=== PATIENT | male | born 1995 | race Caucasian/White ===

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

== ENCOUNTER 2017-03-24 17:40 | Emergency (ER) | payer OTHER ==
[2017-03-24 17:44] VITALS: RESP 18
--- NOTE | 2017-03-24 18:21 | ED ---
Wound/Laceration HPI - General Chief Complaint: Wound/Laceration Stated Complaint: Leg Injury Time Seen by Provider: 03/24/17 18:14 Source: patient, RN notes reviewed Mode of arrival: ambulatory Limitations: no limitations - History of Present Illness Initial Comments: 21-year-old male presents emergency Department chief complaint of right kelley laceration. Patient states that he was ready by if he fell onto his right kelley. Patient states he has pain to the anterior kelley he noticed a laceration. Patient states have not o'clock this morning. Patient states he is up-to- date on his tetanus. Patient states that he was concerned due to help and was soon afterward he decided to be seen. Patient denies any other symptoms with this. Patient states he did not hit his head which other injury from the incident.Patient denies any recent fever, chills, shortness of breath, chest pain, back pain, abdominal pain, nausea vomiting, numbness or tingling, dysuria or hematuria, constipation or diarrhea, headaches or visual changes, or any other current symptoms. - Related Data Home Medications Medication Instructions Recorded Confirmed No Known Home Medications [No 06/11/16 11/27/16 Known Home Medications] Allergies Allergy/AdvReac Type Severity Reaction Status Date / Time No Known Allergies Allergy Verified 03/24/17 17:44 Review of Systems ROS Statement: Those systems with pertinent positive or pertinent negative responses have been documented in the HPI. ROS Other: All systems not noted in ROS Statement are negative. Past Medical History Past Medical History: No Reported History History of Any Multi-Drug Resistant Organisms: None Reported Past Surgical History: No Surgical Hx Reported Past Psychological History: No Psychological Hx Reported Smoking Status: Current every day smoker Past Alcohol Use History: Occasional Past Drug Use History: None Reported General Exam - General Exam Comments Initial Comments: General: The patient is awake and alert, in no distress, and does not appear acutely ill. Neck: The neck is supple, there is no tenderness. Cardiovascular: There is a regular rate and rhythm. No murmur, rub or gallop is appreciated. Respiratory: Lungs are clear to auscultation, respirations are non-labored, breath sounds are equal. No wheezes, stridor, rales, or rhonchi. Musculoskeletal: Sensation intact with 2+ pulses throughout the right lower extremity. Full Range of motion of right knee and right ankle. Patient does have some tenderness to the anterior kelley. This appeared to be an 2 half centimeter frontal kelley laceration. Neurological: CN II-XII intact, There are no obvious motor or sensory deficits. Coordination appears grossly intact. Speech is normal. Skin: Skin is warm and dry and no rashes or lesions are noted. Psychiatric: Normal mood and affect. Limitations: no limitations Course Vital Signs 03/24/17 17:42 Temperature 98.0 F Pulse Rate 96 Respiratory 18 Rate Blood Pressure 141/78 O2 Sat by Pulse 98 Oximetry Procedures - Procedures Initial comment: The skin was anesthetized with 1% lidocaine. The laceration was then cleansed with Betadine and irrigated with normal saline. The wound was inspected, and there was no evidence of injury to deep structures. No foreign body was noted in the wound. A total of 4 skin sutures were placed utilizing 5-0 nylon to a right kelley laceration that is 2.5 cm curved Medical Decision Making - Medical Decision Making 21-year-old male presents emergency room chief complaint of right kelley laceration. This time x-rays reviewed and negative. This time patient went suture care. We discussed care follow-up return parameters. We discussed all patient's family's questions. He stated he understood and management. The plan. They will be discharged home. - Radiology Data Radiology results: image reviewed Interpreted by me: Interpreted by me: Right tib-fib xray: 2 view, no fracture, no dislocation, no bony lesions, no foreign bodies, no soft tissue damage. Waiting official radiology read. Disposition Clinical Impression: Laceration of right lower leg Disposition: HOME SELF-CARE Condition: Stable Instructions: Laceration (ED) Additional Instructions: Please use medication as discussed. Please follow up with family doctor if symptoms have not improved over the next two days. Please return to the emergency room if your symptoms increase or worsen or for any other concerns. Please return to the emergency room in 8-10 days to have sutures removed. Please leave wound covered for the first 24-48 hours and then leave open to air after that time. Please use clean soap and water to clean the suture area to prevent scabbing over the top of your sutures. Please watch for any signs of infection which may include but not limited to increased pain, swelling, redness , fever or chills. Please return to the emergency room if any signs of infection do occur. Please return to the emergency room for any other concerns or complications. Referrals: Matt,, MD [STAFF PHYSICIAN] - 1-2 days Time of Disposition: 18:38
[2017-03-24 18:49] VITALS: BP 126/59; PULSE 69; TEMP 98.2
--- NOTE | 2017-03-24 19:04 | XR ---
EXAMINATION TYPE: XR tibia fibula RT DATE OF EXAM: 03/24/2017 6:28 PM COMPARISON: NONE HISTORY: Laceration. Pain TECHNIQUE: 2 views FINDINGS: I see no fracture nor dislocation. Soft tissues appear normal. There is no sign of a foreig n body. IMPRESSION: Negative right lower leg tibia and fibula exam.
== END 2017-03-24 18:49 | disposition home or self-care (01) ==
LOC: EC 17:40
DX: S81.811A Laceration without foreign body, right lower leg, initial encounter (principal); F17.200 Nicotine dependence, unspecified, uncomplicated; V28.9XXA Unspecified motorcycle rider injured in noncollision transport accident in traffic accident, initial encounter; Y92.410 Unspecified street and highway as the place of occurrence of the external cause
CPT/HCPCS: 12001; 99283

== ENCOUNTER 2017-10-22 19:51 | Emergency (ER) | payer OTHER ==
[2017-10-22] MEDS ORDERED: RX INFO: IV CONTRAST WAS GIVEN 1 EACH MISC MISCELLANE PRN (19:54)
[2017-10-22] MEDS ORDERED: MORPHINE SULFATE 5 MG/ML SYRINGE IVP STA (19:59)
[2017-10-22 20:01] VITALS: BP 137/76; PULSE 89; RESP 18; TEMP 97.7
[2017-10-22 20:20] LABS: Basophils # (A) 0.1 k/uL (0-0.2); Basophils % (A) 0 %; CH 31.7; CHCM 33.7; Eosinophils # (A) 0.1 k/uL (0-0.7); Eosinophils % (A) 1 %; HCT 46.5 % (39.0-53.0); HDW 2.37; HGB 15.6 gm/dL (13.0-17.5); Luc # (Auto) 0.11; Luc % (Auto) 1; Lymphocytes # (A) 1.2 k/uL (1.0-4.8); Lymphocytes % (A) 8 %; MCH 31.6 pg (25.0-35.0); MCHC 33.5 g/dL (31.0-37.0); MCV 94.6 fL (80.0-100.0); Monocytes # (A) 0.7 k/uL (0-1.0); Monocytes % (A) 4 %; Neutrophils # (A) 13.6 k/uL (1.3-7.7); Neutrophils % (A) 87 %; RBC 4.92 m/uL (4.30-5.90); RDW 13.2 % (11.5-15.5); WBC 15.7 k/uL (4.0-11.0); WBC (Perox) 15.82
[2017-10-22 20:28] LABS: INR 1.1 (<1.2); Partial Thromboplastin Time 25.4 sec (22.0-30.0); Prothrombin Time 10.9 sec (9.0-12.0)
[2017-10-22 20:31] LABS: ALT 55 U/L (21-72); AST 59 U/L (17-59); Alkaline Phosphatase 64 U/L (38-126); Anion Gap 11 mmol/L; Blood Urea Nitrogen 12 mg/dL (9-20); Carbon Dioxide 25 mmol/L (22-30); Chloride 106 mmol/L (98-107); Glucose 81 mg/dL (74-99); Non-African American GFR(MDRD) >60 (>60 ml/min/1.73 sqM); Potassium 3.5 mmol/L (3.5-5.1); Sodium 142 mmol/L (137-145); Total Bilirubin 0.4 mg/dL (0.2-1.3); Total Protein 6.4 g/dL (6.3-8.2)
[2017-10-22 20:32] LABS: Alcohol 98 mg/dL
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
[2017-10-22 20:41] LABS: Creatine Kinase 486 U/L (55-170)
[2017-10-22 20:54] LABS: Troponin I <0.012 ng/mL (0.000-0.034)
[2017-10-22 21:01] LABS: Appearance,Urine Clear (Clear); Bacteria,Urine Rare /hpf; Bilirubin,Urine Negative (Negative); Glucose,Urine (UA) Negative (Negative); Ketones,Urine Negative (Negative); Leukocyte Esterase,Urine Negative (Negative); Nitrite,Urine Negative (Negative); Particle Count 587; Protein,Urine Negative (Negative); RBC,Urine <1 /hpf (0-5); Specific Gravity,Urine 1.005 (1.001-1.035); UA Billing (MACRO vs. MICRO) MICRO; Urobilinogen,Urine <2.0 mg/dL (<2.0); WBC,Urine <1 /hpf (0-5)
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
== END 2017-10-22 22:06 | disposition home or self-care (01) ==
LOC: EC 19:51
DX: S20.219A Contusion of unspecified front wall of thorax, initial encounter (principal); R40.2412 Glasgow coma scale score 13-15, at arrival to emergency department; F17.200 Nicotine dependence, unspecified, uncomplicated; V48.9XXA Unspecified car occupant injured in noncollision transport accident in traffic accident, initial encounter; Y92.410 Unspecified street and highway as the place of occurrence of the external cause
CPT/HCPCS: 99285; 96374; 36415; 93005; 86900; 86901; 80053; 82550; 82553; 83605; 84484; 85025; 85610; 85730; 86850; 81001; 80306; 80320; 71010; 72170; 72125; 70450; 71260; 74177; Q9967; J2274

== ENCOUNTER 2017-10-23 13:15 | Emergency (ER) | payer OTHER ==
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
[2017-10-24 16:43] LABS: Appearance,Urine Clear (Clear); Bilirubin,Urine Negative (Negative); Blood,Urine Negative (Negative); Color,Urine Yellow; Glucose,Urine (UA) Negative (Negative); Ketones,Urine 1+ (Negative); Leukocyte Esterase,Urine Negative (Negative); Mucus,Urine Rare /hpf; Nitrite,Urine Negative (Negative); Protein,Urine Negative (Negative); RBC,Urine 2 /hpf (0-5); Specific Gravity,Urine 1.018 (1.001-1.035); Squamous Epithelial Cell,Urine <1 /hpf (0-4); Urobilinogen,Urine <2.0 mg/dL (<2.0); WBC,Urine 1 /hpf (0-5)
== END 2017-10-23 17:29 | disposition left against medical advice (07) ==
LOC: EC 13:15
DX: S20.211A Contusion of right front wall of thorax, initial encounter (principal); V43.62XA Car passenger injured in collision with other type car in traffic accident, initial encounter; Y92.410 Unspecified street and highway as the place of occurrence of the external cause
CPT/HCPCS: 71020; 81003; 99284

== ENCOUNTER 2018-10-31 23:16 | Emergency (ER) | payer OTHER ==
[2018-10-31 23:38] VITALS: RESP 18
--- NOTE | 2018-11-01 00:42 | ED ---
Lower Extremity Injury HPI - General Source: patient, RN notes reviewed Mode of arrival: ambulatory Limitations: no limitations <Clemente Peoples - Last Filed: 11/01/18 00:39> <Ashwini Kaplan - Last Filed: 11/05/18 02:11> - General Chief Complaint: Extremity Injury, Lower Stated Complaint: Extremity numbness Time Seen by Provider: 11/01/18 00:08 - History of Present Illness Initial Comments: This a 23-year-old male presents emergency Department chief complaint left foot injury. Patient states he was seen at [facility] urgent care and [facility] today for a fracture of his left foot. He states that he fell off a roof approximately 25 feet. Patient states that he was told he had 7 different fractures of his foot. Patient will follow-up with Dr. nikolas haynes. Patient states she developed some numbness and tingling in his advised to come emergency department at that time. He states since taking the wrap off symptoms have resolved. He denies any discoloration. (Clemente Peoples) - Related Data Home Medications Medication Instructions Recorded Confirmed No Known Home Medications 06/11/16 10/24/17 Allergies Allergy/AdvReac Type Severity Reaction Status Date / Time No Known Allergies Allergy Verified 10/31/18 23:38 Review of Systems ROS Other: All systems not noted in ROS Statement are negative. <Clemente Peoples - Last Filed: 11/01/18 00:39> ROS Other: All systems not noted in ROS Statement are negative. <Ashwini Kaplan - Last Filed: 11/05/18 02:11> ROS Statement: Those systems with pertinent positive or pertinent negative responses have been documented in the HPI. Past Medical History Past Medical History: No Reported History History of Any Multi-Drug Resistant Organisms: None Reported Past Surgical History: No Surgical Hx Reported Past Psychological History: No Psychological Hx Reported Smoking Status: Current every day smoker Past Alcohol Use History: Daily Past Drug Use History: Marijuana <Clemente Peoples - Last Filed: 11/01/18 00:39> General Exam Limitations: no limitations General appearance: alert, in no apparent distress Head exam: Present: atraumatic, normocephalic, normal inspection Respiratory exam: Present: normal lung sounds bilaterally. Absent: respiratory distress, wheezes, rales, rhonchi, stridor Cardiovascular Exam: Present: regular rate, normal rhythm, normal heart sounds. Absent: systolic murmur, diastolic murmur, rubs, gallop, clicks Extremities exam: Present: other (Left foot there is moderate swelling noted, ecchymosis, pedal pulses are equal bilaterally posterior tibialis and dorsalis pedis. There is no pallor color Refill less than 2 seconds patient has full sensation with palpation) Skin exam: Present: warm, dry, intact, normal color. Absent: rash <Clemente Peoples - Last Filed: 11/01/18 00:39> Vital Signs 10/31/18 11/01/18 23:33 01:50 Temperature 98.5 F 98.4 F Pulse Rate 111 H 68 Respiratory 18 18 Rate Blood Pressure 140/78 142/70 O2 Sat by Pulse 97 98 Oximetry Medical Decision Making <Clemente Peoples - Last Filed: 11/01/18 00:39> <Ashwini Kaplan - Last Filed: 11/05/18 02:11> - Medical Decision Making 31-year-old male presented for left foot injury, reexamination of left foot. Patient is concerned about possible compartment syndrome. Patient has no evidence at this time. He has equal pulses, normal color normal warmth. Sensation. Patient's foot will be rewrapped and will follow-up with orthopedics. (Clemente Peoples) I personally saw and examined the patient. I reviewed and agree with the mid- level provider findings including all diagnostic interpretations and treatment plans as written unless otherwise stated. Patient with a significant injury to his foot which was identified at outside hospital earlier today. Patient was placed in a splint with Joe wrapping and reports that this evening his foot became cold and pain became worse he was concern for compartment syndrome as he had been warned about this so he came in for evaluation. When I evaluated the patient his foot had been unwrapped from a strapping for approximately an hour, he reports the pain has improved the color has improved. At this time I suspect that they swelling increased and Joe wrapping became very tight. I discussed appropriate strapping. Rest, ice and elevation. Patient is to follow-up with Dr. Padilla as planned. Return parameters were again discussed patient was discharged home in stable condition. (Ashwini Kaplan) Disposition Is patient prescribed a controlled substance at d/c from ED?: No Time of Disposition: 00:42 <Clemente Peoples - Last Filed: 11/01/18 00:39> <Ashwini Kaplan - Last Filed: 11/05/18 02:11> Clinical Impression: Foot fracture, left Disposition: HOME SELF-CARE Condition: Stable Instructions: Compartment Syndrome (DC) Additional Instructions: Please return to the Emergency Department if symptoms worsen or any other concerns. Referrals: None,Stated [Primary Care Provider] - 1-2 days Joshua Padilla MD [Medical Doctor] - 1-2 days
[2018-11-01 01:51] VITALS: BP 142/70; PULSE 68; TEMP 98.4
== END 2018-11-01 01:51 | disposition home or self-care (01) ==
LOC: EC 23:16
DX: S92.902A Unspecified fracture of left foot, initial encounter for closed fracture (principal); F17.200 Nicotine dependence, unspecified, uncomplicated; W13.2XXA Fall from, out of or through roof, initial encounter; Y92.69 Other specified industrial and construction area as the place of occurrence of the external cause; Y99.0 Civilian activity done for income or pay
CPT/HCPCS: 99283

== ENCOUNTER 2023-05-31 23:01 | Emergency (ER) | payer BC ==
--- NOTE | 2023-05-31 23:25 | ED ---
General Adult HPI - General Chief complaint: Shortness of Breath Stated complaint: Rapid Heart Rate Time Seen by Provider: 05/31/23 23:05 Source: patient, EMS Mode of arrival: EMS Limitations: no limitations - History of Present Illness Initial comments: Patient presents to the ED by ambulance for evaluation. Patient reports developing rapid heart palpitations and dyspnea about 1 hour prior to arrival. Patient appears to be intoxicated, but he denies medication abuse/overdose, illicit drug use or alcohol use today. Patient states that he last used cocaine last night. Patient denies having any chest pain or any pain at all. Patient denies trauma or injury, fever or chills, headache, focal numbness/weakness/neuro deficit, chest pain or pressure, cough or cold symptoms, dizziness, syncope, abdominal pain, nausea/vomiting/diarrhea, dysuria or urinary symptoms, decreased urine output, leg or calf swelling or pain, or any other symptoms or complaints. - Related Data Home Medications Medication Instructions Recorded Confirmed No Known Home Medications 06/11/16 10/24/17 Allergies Allergy/AdvReac Type Severity Reaction Status Date / Time No Known Allergies Allergy Verified 10/31/18 23:38 Review of Systems ROS Statement: Those systems with pertinent positive or pertinent negative responses have been documented in the HPI. ROS Other: All systems not noted in ROS Statement are negative. Past Medical History Past Medical History: No Reported History History of Any Multi-Drug Resistant Organisms: None Reported Past Surgical History: Orthopedic Surgery Past Psychological History: No Psychological Hx Reported Smoking Status: Current every day smoker Past Alcohol Use History: Occasional Past Drug Use History: Marijuana General Exam Limitations: no limitations General appearance: alert, appears intoxicated Head exam: Present: atraumatic, normocephalic Eye exam: Present: other (Dilated and reactive pupils bilaterally; bilateral conjunctival injection) ENT exam: Present: mucous membranes moist Neck exam: Present: other (Trachea is in midline). Absent: tenderness, meningismus Respiratory exam: Present: normal lung sounds bilaterally. Absent: respiratory distress, wheezes, rales, rhonchi, stridor, chest wall tenderness Cardiovascular Exam: Present: normal rhythm, tachycardia, normal heart sounds, other (Normal radial pulses bilaterally) GI/Abdominal exam: Present: soft. Absent: distended, tenderness, guarding Extremities exam: Present: other (Negative Homans sign bilaterally). Absent: tenderness, pedal edema, calf tenderness Neurological exam: Present: alert, oriented X3, CN II-XII intact. 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 Patient is easily arousable, but difficult to keep awake at this time. Plan will be to discharge patient home once he is more awake. Patient's fiance is at bedside with the patient. She is aware of the patient's test results, and she feels comfortable taking the patient home from the ED tonight. She was counseled about cocaine abuse, palpitations and dyspnea. She was clearly explained return and follow-up instructions. She was instructed to have the patient follow up closely with his primary care provider. EKG Findings - EKG Comments: EKG Findings:: ED physician interpretation (interpreted by me): Sinus tachycardia, ventricular rate of 112 bpm, no ectopy, normal MN and QRS intervals, normal QT interval, normal axis, no ST or T-wave abnormality Medical Decision Making - Medical Decision Making Was pt. sent in by a medical professional or institution (, PA, MICROSYSTEMS ENGINEER, urgent care, hospital, or long term...) When possible be specific @ -No Did you speak to anyone other than the patient for history (EMS, parent, family, police, friend...)? What history was obtained from this source @ -No Did you review nursing and triage notes (agree or disagree)? Why? @ -I reviewed and agree with nursing and triage notes Were old charts reviewed (outside hosp., previous admission, EMS record, old EKG, old radiological studies, urgent care reports/EKG's, long term records)? Report findings @ -No old charts were reviewed Differential Diagnosis (chest pain, altered mental status, abdominal pain women, abdominal pain men, vaginal bleeding, weakness, fever, dyspnea, syncope, headache, dizziness, GI bleed, back pain, seizure, CVA, palpatations, mental health, musculoskeletal)? @ -Differential Palpitations Ventricular arrhythmias, atrial arrhythmias, myocardial infarction, anemia, electrolyte imbalance, hypokalemia, pulmonary embolism, pulmonary disease, drugs, alcohol, anxiety, stress, dehydration, dyspnea, pneumothorax, asthma, COPD, CHF....This is not meant to be an all-inclusive list. EKG interpreted by me (3pts min.). @ -As above X-rays interpreted by me (1pt min.). @ -Chest x-ray was reviewed myself and shows no acute abnormality. I agree with the radiologist's interpretation as above. CT interpreted by me (1pt min.). @ -None done U/S interpreted by me (1pt. min.). @ -None done What testing was considered but not performed or refused? (CT, X-rays, U/S, labs)? Why? @ -None What meds were considered but not given or refused? Why? @ -None Did you discuss the management of the patient with other professionals (professionals i.e. , PA, MICROSYSTEMS ENGINEER, lab, RT, psych nurse, social problems specialist, odd job laborer, teacher, unemployment insurance hearing officer, housing case manager)? Give summary @ -No Was smoking cessation discussed for >3mins.? @ -No Was critical care preformed (if so, how long)? @ -No Were there social determinants of health that impacted care today? How? (Homelessness, low income, unemployed, alcoholism, drug addiction, transportation, low edu. Level, literacy, decrease access to med. care, alf, rehab)? @ -No Was there de-escalation of care discussed even if they declined (Discuss DNR or withdrawal of care, Hospice)? DNR status @ -No What co-morbidities impacted this encounter? (DM, HTN, Smoking, COPD, CAD, Cancer, CVA, ARF, Chemo, Hep., AIDS, mental health diagnosis, sleep apnea, morbid obesity)? @ -None Was patient admitted / discharged? Hospital course, mention meds given and route, prescriptions, significant lab abnormalities, going to OR and other pertinent info. @ -Patient presented to the ED with symptoms of tachycardia and dyspnea. Patient was noted to have dilated pupils, and I suspect some sort of sympathomimetic toxidrome. Patient admitted to using cocaine last night. Patient was treated with IV Ativan in the ED with resolution of his tachycardia and improvement in his blood pressure. Other than a mildly low potassium level, for which the patient was treated with oral potassium in the ED, the patient's labs are fairly unremarkable, including a negative d-dimer and normal troponin. Patient's chest x-ray is negative. Will discharge patient home with his fiance. Undiagnosed new problem with uncertain prognosis? @ -No Drug Therapy requiring intensive monitoring for toxicity (Heparin, Nitro, Insulin, Cardizem)? @ -No Were any procedures done? @ -No Diagnosis/symptom? @ -Palpitations Acute, or Chronic, or Acute on Chronic? @ -Acute Uncomplicated (without systemic symptoms) or Complicated (systemic symptoms)? @ -default Side effects of treatment? @ -No Exacerbation, Progression, or Severe Exacerbation? @ -No Poses a threat to life or bodily function? How? (Chest pain, [place], [place], pneumonia, PE, COPD, DKA, ARF, appy, cholecystitis, CVA, Diverticulitis, Homicidal, Suicidal, threat to staff... and all critical care pts) @ -No Diagnosis/symptom? @ -Dyspnea Acute, or Chronic, or Acute on Chronic? @ -Acute Uncomplicated (without systemic symptoms) or Complicated (systemic symptoms)? @ -default Side effects of treatment? @ -none Exacerbation, Progression, or Severe Exacerbation] @ -no Poses a threat to life or bodily function? @ -no Diagnosis/symptom? @ -Cocaine abuse Acute, or Chronic, or Acute on Chronic? @ -default Uncomplicated (without systemic symptoms) or Complicated (systemic symptoms)? @ -default Side effects of treatment? @ -none Exacerbation, Progression, or Severe Exacerbation] @ -no Poses a threat to life or bodily function? @ -no Diagnosis/symptom? @ -Mild hypokalemia Acute, or Chronic, or Acute on Chronic? @ -default Uncomplicated (without systemic symptoms) or Complicated (systemic symptoms)? @ -default Side effects of treatment? @ -none Exacerbation, Progression, or Severe Exacerbation] @ -no Poses a threat to life or bodily function? @ -no - Lab Data Result diagrams: 05/31/23 23:18 05/31/23 23:18 Lab Results 05/31/23 05/31/23 05/31/23 Range/Units 23:18 23:18 23:18 WBC 8.9 (3.8-10.6) k/uL RBC 4.46 (4.30-5.90) m/uL Hgb 14.4 (13.0-17.5) gm/dL Hct 41.8 (39.0-53.0) % MCV 93.9 (80.0-100.0) fL MCH 32.2 (25.0-35.0) pg MCHC 34.3 (31.0-37.0) g/dL RDW 12.7 (11.5-15.5) % Plt Count 163 (150-450) k/uL MPV 8.6 Neutrophils % 61 % Lymphocytes % 29 % Monocytes % 6 % Eosinophils % 2 % Basophils % 0 % Neutrophils # 5.4 (1.3-7.7) k/uL Lymphocytes # 2.6 (1.0-4.8) k/uL Monocytes # 0.5 (0-1.0) k/uL Eosinophils # 0.2 (0-0.7) k/uL Basophils # 0.0 (0-0.2) k/uL PT 10.9 (9.0-12.0) sec INR 1.0 (<1.2) APTT 25.1 (22.0-30.0) sec D-Dimer 0.19 (<0.60) mg/L FEU Sodium 136 L (137-145) mmol/L Potassium 3.2 L (3.5-5.1) mmol/L Chloride 104 (98-107) mmol/L Carbon Dioxide 24 (22-30) mmol/L Anion Gap 8 mmol/L BUN 12 (9-20) mg/dL Creatinine 0.92 (0.66-1.25) mg/dL Est GFR (CKD-EPI)AfAm >90 (>60 ml/min/1.73 sqM) Est GFR (CKD-EPI)NonAf >90 (>60 ml/min/1.73 sqM) Glucose 213 H (74-99) mg/dL Calcium 8.7 (8.4-10.2) mg/dL Magnesium 1.9 (1.6-2.3) mg/dL Total Bilirubin 0.7 (0.2-1.3) mg/dL AST 38 (17-59) U/L ALT 26 (4-49) U/L Alkaline Phosphatase 81 (38-126) U/L Troponin I (0.000-0.034) ng/mL NT-Pro-B Natriuret Pep 38 pg/mL Total Protein 6.9 (6.3-8.2) g/dL Albumin 4.2 (3.5-5.0) g/dL Serum Alcohol <10 mg/dL 05/31/23 Range/Units 23:18 WBC (3.8-10.6) k/uL RBC (4.30-5.90) m/uL Hgb (13.0-17.5) gm/dL Hct (39.0-53.0) % MCV (80.0-100.0) fL MCH (25.0-35.0) pg MCHC (31.0-37.0) g/dL RDW (11.5-15.5) % Plt Count (150-450) k/uL MPV Neutrophils % % Lymphocytes % % Monocytes % % Eosinophils % % Basophils % % Neutrophils # (1.3-7.7) k/uL Lymphocytes # (1.0-4.8) k/uL Monocytes # (0-1.0) k/uL Eosinophils # (0-0.7) k/uL Basophils # (0-0.2) k/uL PT (9.0-12.0) sec INR (<1.2) APTT (22.0-30.0) sec D-Dimer (<0.60) mg/L FEU Sodium (137-145) mmol/L Potassium (3.5-5.1) mmol/L Chloride (98-107) mmol/L Carbon Dioxide (22-30) mmol/L Anion Gap mmol/L BUN (9-20) mg/dL Creatinine (0.66-1.25) mg/dL Est GFR (CKD-EPI)AfAm (>60 ml/min/1.73 sqM) Est GFR (CKD-EPI)NonAf (>60 ml/min/1.73 sqM) Glucose (74-99) mg/dL Calcium (8.4-10.2) mg/dL Magnesium (1.6-2.3) mg/dL Total Bilirubin (0.2-1.3) mg/dL AST (17-59) U/L ALT (4-49) U/L Alkaline Phosphatase (38-126) U/L Troponin I 0.015 (0.000-0.034) ng/mL NT-Pro-B Natriuret Pep pg/mL Total Protein (6.3-8.2) g/dL Albumin (3.5-5.0) g/dL Serum Alcohol mg/dL - Radiology Data Chest x-ray: No infiltrate. Cardiomegaly for the patient's age. Disposition Clinical Impression: Palpitations, Dyspnea, Cocaine abuse, Hypokalemia Disposition: HOME SELF-CARE Condition: Stable Additional Instructions: Return to the ER immediately should you develop increased shortness of breath, chest pain, feeling dizzy or faint, vomiting, a fever, or new or worsening symptoms. Follow up closely with your primary care provider. Is patient prescribed a controlled substance at d/c from ED?: No Referrals: None,Stated [Primary Care Provider] - 1-2 days Kevin Rey MD [STAFF PHYSICIAN] - 1-2 days
[2023-05-31] MEDS ORDERED: SODIUM CHLORIDE 0.9% 1,000 ML IV ONE (23:31)
[2023-05-31] MEDS ORDERED: LORazepam 2 MG/ML INJ IV STA (23:31)
[2023-06-01 00:02] LABS: Basophils % (A) 0 %; Eosinophils # (A) 0.2 k/uL (0-0.7); Eosinophils % (A) 2 %; HCT 41.8 % (39.0-53.0); HGB 14.4 gm/dL (13.0-17.5); Lymphocytes # (A) 2.6 k/uL (1.0-4.8); Lymphocytes % (A) 29 %; MCH 32.2 pg (25.0-35.0); MCHC 34.3 g/dL (31.0-37.0); MCV 93.9 fL (80.0-100.0); Mean Platelet Volume 8.6; Monocytes # (A) 0.5 k/uL (0-1.0); Monocytes % (A) 6 %; Neutrophils # (A) 5.4 k/uL (1.3-7.7); Neutrophils % (A) 61 %; Platelet Count 163 k/uL (150-450); RBC 4.46 m/uL (4.30-5.90); RDW 12.7 % (11.5-15.5); WBC 8.9 k/uL (3.8-10.6)
[2023-06-01 00:03] LABS: ALT 26 U/L (4-49); AST 38 U/L (17-59); African American GFR (CKD) >90 (>60 ml/min/1.73 sqM); Albumin 4.2 g/dL (3.5-5.0); Alcohol <10 mg/dL; Alkaline Phosphatase 81 U/L (38-126); Anion Gap 8 mmol/L; Blood Urea Nitrogen 12 mg/dL (9-20); Calcium 8.7 mg/dL (8.4-10.2); Carbon Dioxide 24 mmol/L (22-30); Chloride 104 mmol/L (98-107); Glucose 213 mg/dL (74-99); Magnesium 1.9 mg/dL (1.6-2.3); Non-African American GFR(CKD) >90 (>60 ml/min/1.73 sqM); Potassium 3.2 mmol/L (3.5-5.1); Sodium 136 mmol/L (137-145); Total Bilirubin 0.7 mg/dL (0.2-1.3); Total Protein 6.9 g/dL (6.3-8.2)
[2023-06-01 00:11] LABS: NT-Pro-B-Type Natriuretic Pept 38 pg/mL
[2023-06-01 00:14] LABS: Partial Thromboplastin Time 25.1 sec (22.0-30.0); Prothrombin Time 10.9 sec (9.0-12.0)
[2023-06-01] MEDS ORDERED: POTASSIUM CHLORIDE ER 20 MEQ TAB.ER PO STA (00:50)
--- NOTE | 2023-06-01 01:09 | XR ---
EXAM: XR Chest, 2 Views CLINICAL HISTORY: ITS.REASON XR Reason: dysrhythmia TECHNIQUE: Frontal and lateral views of the chest. COMPARISON: CXR October 23, 2017. FINDINGS: Lungs: Unremarkable. No consolidation. Pleural space: Unremarkable. No pneumothorax. Heart: Cardiomegaly for the patient's age. Mediastinum: Unremarkable. Bones/joints: Unremarkable. IMPRESSION: No infiltrate. Cardiomegaly for the patient's age.
[2023-06-01 03:21] VITALS: BP 115/78; PULSE 86; RESP 16; TEMP 98.5
== END 2023-06-01 03:21 | disposition home or self-care (01) ==
LOC: EC 23:01
DX: E87.6 Hypokalemia (principal); F14.10 Cocaine abuse, uncomplicated; R00.2 Palpitations; R06.00 Dyspnea, unspecified; R00.0 Tachycardia, unspecified; F17.200 Nicotine dependence, unspecified, uncomplicated; F12.90 Cannabis use, unspecified, uncomplicated
CPT/HCPCS: 36415; 93005; 85379; 83880; 80053; 83735; 84484; 85025; 85610; 85730; 80320; 99285; 96374; 96361 ×2; J2060; 71046

== ENCOUNTER 2025-03-03 19:04 | Inpatient (IN) | payer BC, MEDICAID, OTHER ==
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
[2025-03-03] MEDS ORDERED: IBUPROFEN 600 MG TAB PO PRN (23:25)
[2025-03-03] MEDS ORDERED: MAG HYDROX/AL HYDROX/SIMETH 355 ML BOTTLE PO PRN (23:25)
[2025-03-03] MEDS ORDERED: OLANZapine ODT 5 MG TAB PO PRN (23:25)
[2025-03-03] MEDS ORDERED: MAGNESIUM HYDROXIDE 2,400 MG/30 ML CUP PO PRN (23:25)
[2025-03-03] MEDS ORDERED: ACETAMINOPHEN TAB 325 MG TAB PO PRN (23:25)
[2025-03-03] MEDS ORDERED: LORazepam 1 MG TAB PO PRN (23:25)
[2025-03-03] MEDS ORDERED: OLANZapine 10 MG VIAL IM PRN (23:25)
[2025-03-03] MEDS ORDERED: LORazepam 2 MG/ML INJ IM PRN (23:25)
[2025-03-04] MEDS: NICOTINE GUM (POLACRILEX) 2 MG GUM BUCCAL PRN (00:26)
[2025-03-04 08:20] LABS: Basophils # (A) 0.06 10*3/uL (0.00-0.10); Basophils % (A) 0.7 %; Eosinophils # (A) 0.14 10*3/uL (0.04-0.35); Eosinophils % (A) 1.7 %; HCT 49.8 % (39.6-50.0); HGB 17.4 g/dL (13.0-17.0); Lymphocytes # (A) 2.89 10*3/uL (0.90-5.00); Lymphocytes % (A) 35.9 %; MCH 32.2 pg (27.0-32.0); MCHC 34.9 g/dL (32.0-37.0); MCV 92.2 fL (80.0-97.0); Mean Platelet Volume 9.6 fL (9.5-12.2); Monocytes # (A) 0.76 10*3/uL (0.20-1.00); Monocytes % (A) 9.4 %; Neutrophils # (A) 4.19 10*3/uL (1.80-7.70); Neutrophils % (A) 52.1 %; Platelet Count 239 10*3/uL (140-440); RDW 12.7 % (11.5-14.5); WBC 8.06 10*3/uL (4.50-10.00)
[2025-03-04 08:40] LABS: ALT 24 U/L (4-49); AST 33 U/L (17-59); African American GFR (CKD) >90 (>60 ml/min/1.73 sqM); Albumin 4.7 g/dL (3.5-5.0); Alkaline Phosphatase 72 U/L (38-126); Anion Gap 6 mmol/L; Bilirubin, Delta 0.2 mg/dL (0.0-0.2); Blood Urea Nitrogen 14 mg/dL (9-20); Calcium 9.9 mg/dL (8.4-10.2); Carbon Dioxide 30 mmol/L (22-30); Chloride 104 mmol/L (98-107); Glucose 104 mg/dL (74-99); Non-African American GFR(CKD) >90 (>60 ml/min/1.73 sqM); Potassium 4.7 mmol/L (3.5-5.1); Sodium 140 mmol/L (137-145); Total Bilirubin 1.2 mg/dL (0.2-1.3); Total Protein 7.7 g/dL (6.3-8.2)
[2025-03-04] MEDS ORDERED: NICOTINE 21MG/24HR PATCH TRANSDERM SCH (09:00)
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
[2025-03-04 15:21] LABS: Chol/HDL Ratio 3.04 Ratio; LDL Cholesterol,Calculated 95.6 mg/dL (0.0-131.0); VLDL Calculation 15.78 mg/dL (5.00-40.00)
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
[2025-03-06 00:21] VITALS: RESP 16
[2025-03-06 08:09] VITALS: BP 121/82; PULSE 94; TEMP 97.1
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
== END 2025-03-06 13:14 | disposition home or self-care (01) | DRG 755 ==
LOC: EC 19:04 → 3MHU 23:23
PROVIDERS: ADMIT Psychiatry & Neurology Psychiatry; ATTEND Psychiatry & Neurology Psychiatry
DX: F43.22 Adjustment disorder with anxiety (principal); F17.210 Nicotine dependence, cigarettes, uncomplicated; R45.851 Suicidal ideations; Z63.0 Problems in relationship with spouse or partner; Z71.89 Other specified counseling
CPT/HCPCS: 80053; 80061; 82075; 82248; 83036; 84443; 85025; 87635; 99285